=== PATIENT | female | born 1995 | race Caucasian/White ===

== ENCOUNTER 2017-01-21 15:07 | Emergency (ER) | payer BC ==
[~2017-01-21] VITALS: Ht 162.6 cm; Wt 49.8 kg
[~2017-01-21 15:07] MED LIST: MAGN250T3 PO; TOPI100T20 PO
[2017-01-21 15:09] VITALS: TEMP 37.1; Ht 162.6 cm; Wt 49.8 kg
[2017-01-21] MEDS ORDERED: IBUP-1050 PO (15:18)
[2017-01-21] MEDS ORDERED: CHOL1TAB42 PO (15:18)
[2017-01-21] MEDS ORDERED: MULT-513 PO (15:18)
[2017-01-21] MEDS ORDERED: ACETAMINOPHEN 500 MG TAB PO STA (15:22)
[2017-01-21] MEDS ORDERED: TRAMADOL HCL 50 MG TAB PO STA (15:22)
[2017-01-21 16:05] LABS: URINE APPEARANCE CLEAR (CLEAR); URINE BILIRUBIN NEG (NEG); URINE COLOR DK YELLOW; URINE EPITHELIAL CELL AUTO >30 /lpf (0-5); URINE NITRITE NEG (NEG); URINE PH 5.5 (4.5-7.5); URINE SPECIFIC GRAVITY 1.017 (1.000-1.030); UROBILINOGEN NEG (NEG); ZZUR CULT IF INDIC CLEAN CATCH YES
--- NOTE | 2017-01-21 16:08 | DIAGNOSTIC IMAGING REPORT ---
LUMBAR SPINE 5 VIEWS HISTORY: Pain low back pain COMPARISON: None. FINDINGS: Slight wedge deformity superior endplate L4 considered old No subluxation. Mild degenerative disc change throughout. This is most prominent at L3-L4 IMPRESSION: Mild degenerative disc change. No acute bony abnormality. Slight wedge deformity superior endplate L4 considered old Electronically signed by: Chente Bey M.D. 01/21/2017 4:07 PM Dictated Date/Time: 01/21/2017 4:05 PM
[2017-01-21 16:16] LABS: MANUAL MICROSCOPIC REQUIRED? NO; REVIEW REQ? YES
[2017-01-21 16:31] LABS: BENZODIAZEPINE, URINE POS (NEG); COCAINE,URINE NEG (NEG); PHENCYCLIDINE, URINE NEG (NEG)
[2017-01-21] MEDS ORDERED: CEFTRIAXONE SOD 350MG/ML 1 GM VIAL IM ONE (17:45)
[2017-01-21 18:19] VITALS: BP 96/55; PULSE 78; O2SAT 99
--- NOTE | 2017-01-22 18:41 | EMERGENCY ROOM VISIT NOTE ---
History First contact with patient: 15:12 Chief Complaint: BACK PAIN Stated Complaint: SEVERE LOWER BACK PAIN History of Present Illness The patient is a 21 year old female who presents to the Emergency Room with complaints of low back pain for the past 2-3 days. The patient is a nurse's aide and does not recall distinct injury or trauma to explain her symptoms. She is with mild nausea but no vomiting. The patient does not have radiation of her pain. No fevers or chills. The patient considers herself usually healthy and denies chance of . No vaginal drainage or discharge. She does not have a history of chronic back pain. The patient rates her discomfort a 9/10 and does not improve with rest or position. Review of Systems More than 10 systems were reviewed and otherwise negative with the exception of history of present illness. Past Medical/Surgical History No chronic medical disease Family History No pertinent family history Social History Smoking Status: Never Smoker Housing Status: lives with family Occupation Status: employed Current/Historical Medications Scheduled Cholecalciferol (Vitamin D), 5,000 UNITS PO DAILY Magnesium (Magnesium 250 mg), 250 MG PO DAILY Multivitamins/Minerals (Mvi With Minerals), 1 TAB PO DAILY Topiramate (Topamax), 100 MG PO BID Scheduled PRN Ibuprofen (Advil), 400 MG PO Q4 PRN for Pain Allergies Coded Allergies: No Known Allergies (Unverified , 11/03/16) Physical Exam Vital Signs Date Time Temp Pulse Resp B/P Pulse Ox O2 Delivery O2 Flow Rate FiO2 01/21/17 18:19 78 20 96/55 99 01/21/17 17:55 90 16 113/65 98 01/21/17 15:09 37.1 100 18 103/63 100 Room Air Pain Rating (0-10): 5.0 Physical Exam VITALS: Vitals are noted on the nurse's note and reviewed by myself. Vital signs stable. GENERAL: Well-developed, well-nourished, white female, who is in no acute distress and resting comfortably. Patient is cooperative with the examination. HEAD: Normocephalic atraumatic. HEART: Regular rate and rhythm without murmurs gallops or rubs. LUNGS: Clear to auscultation bilaterally without wheezes, rales or rhonchi. No retractions or accessory muscle use. ABDOMEN: Positive normal bowel sounds x 4. Soft, nontender, without masses or organomegaly. No guarding or rebound tenderness. MUSCULOSKELETAL: No muscle atrophy, erythema, or edema noted. Full range of motion without joint tenderness in all extremities. No distinct spinal tenderness appreciated throughout. No saddle paresthesias. Normal straight leg raise. There is left-sided CVA tenderness. NEURO: Patient was alert and oriented to person place and time. CN II through XII grossly intact. Medical Decision & Procedures ER Provider Diagnostic Interpretation: LUMBAR SPINE 5 VIEWS HISTORY: Pain low back pain COMPARISON: None. FINDINGS: Slight wedge deformity superior endplate L4 considered old No subluxation. Mild degenerative disc change throughout. This is most prominent at L3-L4 IMPRESSION: Mild degenerative disc change. No acute bony abnormality. Slight wedge deformity superior endplate L4 considered old Laboratory Results Test 01/21/17 15:44 Urine Color DK YELLOW Urine Appearance CLEAR (CLEAR) Urine pH 5.5 (4.5-7.5) Urine Specific [place] 1.017 (1.000-1.030) Urine Protein NEG (NEG) Urine Glucose (UA) NEG (NEG) Urine Ketones 2+ (NEG) Urine Occult Blood 1+ (NEG) Urine Nitrite NEG (NEG) Urine Bilirubin NEG (NEG) Urine Urobilinogen NEG (NEG) Urine Leukocyte Esterase SMALL (NEG) Urine WBC (Auto) 10-30 /hpf (0-5) Urine RBC (Auto) 0-4 /hpf (0-4) Urine Hyaline Casts (Auto) 10-30 /lpf (0-5) Urine Epithelial Cells (Auto) >30 /lpf (0-5) Urine Bacteria (Auto) NEG (NEG) Urine Renal Epithelial Cells /lpf (0-5) Urine Test NEG (NEG) Urine Opiates Screen NEG (NEG) Urine Methadone, Qualitative NEG (NEG) Urine Barbiturates NEG (NEG) Urine Phencyclidine (PCP) Level NEG (NEG) Ur Amphetamine/Methamphetamine NEG (NEG) MDMA (Ecstasy) Screen NEG (NEG) Urine Benzodiazepines Screen POS (NEG) Urine Cocaine Metabolite NEG (NEG) Urine Marijuana (THC) NEG (NEG) Medications Administered Medications (Trade) Dose Ordered Sig/Yamini Route Start Time Stop Time Status Last Admin Dose Admin Acetaminophen (Tylenol Tab) 1,000 mg NOW STAT PO 01/21/17 15:22 01/21/17 15:24 DC 01/21/17 15:41 1,000 MG Tramadol HCl (Ultram Tab) 50 mg NOW STAT PO 01/21/17 15:22 01/21/17 15:24 DC 01/21/17 15:41 50 MG Ceftriaxone Sodium (Rocephin Im) 1,000 mg NOW ONCE IM 01/21/17 17:45 01/21/17 17:47 DC 01/21/17 18:11 1,000 MG ED Course Physical exam and history were performed. Nursing notes and EMR were reviewed. Patient appears to have low back pain for the past several days. On exam she does have left CVA tenderness. Her pain is not otherwise reproducible on palpation of the spine itself. She is without neurologic deficit. The patient today is accompanied by family, who report that the patient was seen at [facility] yesterday for this complaint. The patient did not originally offer this history to me. The patient states that [facility] "did nothing for me ", and this is why she now presents to this facility. The patient states that they did not do x-rays yesterday, and x-ray was performed. The patient was able to provide a urine sample here, which was sent to the lab. The patient was otherwise medicated as above. I was able to review the records from [facility]. Evidently the patient had blood work performed that did show an elevated white blood cell count. The patient was found to have symptoms consistent with pyelonephritis, and she was given Rocephin. The patient was given prescription antibiotics, but she has not picked these up, and she does not believe that she has a kidney infection. The patient's primary concern is for pain control. The patient urine is as above and was reviewed. It is suggestive of a UTI, and combined with her left CVA tenderness I do suspect that she does have a pyelonephritis. A lumbar spine x-ray series was performed here and does not show acute findings. Of note, the patient does have benzodiazepines in her system, despite not being provided these at [facility] or having these as a normal prescription for her. Overall the patient does appear stable for discharge home. She does not appear toxic, and I did offer oral versus IM medicine here as she did not start her prescription from [facility]. The patient elected for IM treatment, and she was given Rocephin again. The patient needs to follow with her PCP for further care and management. She was otherwise invited back to the ER with any new, worsening, or concerning symptoms. The chart was completed utilizing [employer] Speech Voice Recognition Software. Grammatical errors, random word insertions, pronoun errors, and incomplete sentences are an occasional consequence of this system due to software limitations, ambient noise, and hardware issues. Any formal questions or concerns about the content, text, or information contained within the body of this dictation should be directly addressed to the provider for clarification. . Medical Decision Differential diagnosis: Etiologies such as musculoskeletal, disc herniation, fracture, aortic disease, metastatic disease, cord compression, discitis, infection, renal colic, gastrointestinal, acute exacerbation of chronic back pain, sciatica, cauda equina, as well as others were entertained. Impression Primary Impression: Pyelonephritis Departure Information Dispostion Home / Self-Care Condition GOOD Forms HOME CARE DOCUMENTATION FORM, Work Instructions, IMPORTANT VISIT INFORMATION Patient Instructions [facility] Additional Instructions You were seen and evaluated today on an emergency basis only. This is not a substitute for, or an effort to provide, complete comprehensive medical care. It is not possible to recognize and treat all injuries or illnesses in a single emergency department visit. For this reason it is recommended that you followup with your primary care physician's office on Monday for ongoing care and evaluation. Call first thing in the morning and let them know you were seen in the ER to help make her appointment. Begin your medication as previously prescribed at [facility]. Drink plenty of fluids and remain well hydrated. For baseline pain relief you may alternate ibuprofen and acetaminophen every 4 hours for pain control. Take 600 mg ibuprofen (Advil) and then 4 hours later take 1000 mg acetaminophen (Tylenol). Do not take more than 3000 mg acetaminophen in a single day. You are welcome to return to the emergency department anytime with new, worsening, or concerning symptoms.
[2017-01-25 11:48] LABS: HYDROXYETHYLFLURAZEPAM CONF NEGATIVE NG/ML (CUTOFF=50); HYDROXYMIDAZOLAM NEGATIVE NG/ML (CUTOFF=50); HYDROXYTRIAZOLAM CONF NEGATIVE NG/ML (CUTOFF=50); TEMAZEPAM CONF 587 NG/ML (CUTOFF=50)
== END 2017-01-21 18:21 | disposition home or self-care (01) ==
LOC: C.EDB 15:08 → C.EDD 18:21
DX: N12 Tubulo-interstitial nephritis, not specified as acute or chronic (principal)

== ENCOUNTER → 2018-06-19 | Outpatient (CLI) | payer OTHER ==
[~2018-06-19] MED LIST changes: +CHOL1TAB42 PO; +IBUP-1050 PO; +MULT-513 PO
== END | disposition home or self-care (01) ==
LOC: C.LAB1850 14:15
PROVIDERS: ATTEND Obstetrics & Gynecology
DX: Z34.02 Encounter for supervision of normal first pregnancy, second trimester (principal)

== ENCOUNTER 2020-01-21 07:38 | Inpatient (IN) ==
[2020-01-21] MEDS ORDERED: LACTATED RINGER'S 1,000 ML IV PRN (08:09)
[2020-01-21] MEDS ORDERED: PENICILLIN G POTASSIUM 3 MU in DEXTROSE 5% 100 ML IV PRN (08:09)
[2020-01-21] MEDS ORDERED: OXYTOCIN 30 UNITS/500 ML BAG IV PRN ×2 (08:09→09:53)
[2020-01-21] MEDS ORDERED: PENICILLIN G POTASSIUM 6 MU in DEXTROSE 5% 250 ML IV ONE (08:15)
--- NOTE | 2020-01-21 08:16 | Labor Progress Brief Note ---
Date of Service January 21, 2020 Subjective 24yo arrives from home with c/o +ROM for clear fluid, +FM, +ctx and no VB. Patient was very late presentation to care and has had only one visit. Noted to be on topamax during . Assessment & Plan (1) Carrier of group B Streptococcus: PCN start now. (2) Late care affecting : Reviewed NOB labs, all appear normal, GBS is noted positive, pt aware of limitations of care beginning in late third trimester. (3) Normal labor and delivery: Admit, epidural prn, exp mgmt. Physical Exam Physical Exam: 8100/-1, grossly ruptured for clear fluid. FHT cat 1. [place] rare ctx / poorly traced. Results & Data Vital Signs (Past 12 Hours) Vital Signs Pulse BP 01/21/20 08:00 86 127/66 Coding Level of Care Code None Diagnoses Carrier of group B Streptococcus Z22.330 Late care affecting O09.30 Normal labor and delivery O80
[2020-01-21] MEDS ORDERED: ePHEDrine sulfate 50 MG/ML AMP ONE (08:37)
[2020-01-21] MEDS ORDERED: BUPIVACAINE 0.25% 30 ML VIAL ONE (08:37)
[2020-01-21] MEDS ORDERED: fentaNYL citrate 100 MCG/2 ML VIAL ONE (08:38)
[2020-01-21] MEDS ORDERED: fentaNYL 2MCG/ML ROPIV 1.25MG/ML 100 ML BAG EPI ONE (08:38)
[2020-01-21] MEDS ORDERED: fentaNYL 2MCG/ML ROPIV 1.25MG/ML 100 ML BAG EPI PRN (08:40)
[2020-01-21] MEDS ORDERED: ONDANSETRON INJ 2 MG/ML 2 ML VIAL IV PRN (08:40)
[2020-01-21] MEDS ORDERED: NALOXONE HCL 1 MG in SODIUM CHLORIDE 0.9% 1000ML 1,000 ML IV PRN (08:40)
[2020-01-21] MEDS ORDERED: ePHEDrine sulfate 50 MG/ML AMP IV PRN (08:40)
[2020-01-21] MEDS ORDERED: NALOXONE HCL 0.4 MG/1 ML VIAL/CARP IV PRN (08:40)
[2020-01-21] MEDS ORDERED: DiphenhydrAMINE HCL 50 MG/ML VIAL IV PRN (08:40)
[2020-01-21] MEDS ORDERED: NALBUPHINE HCL INJ 10 MG/ML AMP IV PRN (08:40)
[2020-01-21 08:47] LABS: Hematocrit (blood only) 29.5 % (37-47); Hemoglobin 9.3 g/dL (12.0-16.0); Mean Corpuscular Hemoglobin 24.7 pg (25-34); Mean Corpuscular Volume 78.5 fL (80-100); Mean Platelet Volume 9.9 fL (7.4-10.4); Platelet Count 260 K/uL (130-400); RDW Coefficient of Variation 14.6 % (11.5-14.5); RDW Standard Deviation 41.8 fL (36.4-46.3); Red Blood Count 3.76 M/uL (4.2-5.4); White Blood Count 9.75 K/uL (4.8-10.8)
[2020-01-21 08:53] LABS: Mean Corpuscular Hgb Conc 31.5 g/dL (32-36)
--- NOTE | 2020-01-21 09:42 | Delivery Summary ---
Vaginal Delivery Summary Date of Service January 21, 2020 The patient dilated to complete and pushed to deliver a viable female infant Apgars 8 and 9 via over intact perineum. Mouth and nose bulb suctioned at perineum. Shoulders and body delivered with ease. was vigorous and crying at . Cord clamped at 30 seconds of life and to maternal abdomen where the cord was then doubly clamped and cut. Placenta delivered spontaneously and intact, three-vessel cord. Hemostasis achieved with dilute pitocin and uterine massage. Cervix and sulci intact. EBL 300 cc. Mother and baby stable recovery. [facility] Vaginal Delivery Charge Vaginal Delivery Codes: 75118 global code for the antepartum, delivery, and post-
[2020-01-21] MEDS ORDERED: OXYTOCIN 20 UNITS in LACTATED RINGER'S 1,000 ML IV SCH (09:53)
[2020-01-21] MEDS ORDERED: BENZOCAINE 20% AER SPR 82.5 GM CAN EXT PRN (09:53)
[2020-01-21] MEDS ORDERED: ACETAMINOPHEN 325 MG TAB PO PRN (09:53)
[2020-01-21] MEDS ORDERED: HYDROCORTISONE ACETATE 25 MG SUPP PR PRN (09:53)
[2020-01-21] MEDS ORDERED: DIPHTHERIA/TETANUS/PERTUSSIS 0.5 ML SYR/VIAL IM ONE (09:53)
[2020-01-21] MEDS ORDERED: IBUPROFEN 600 MG TAB PO PRN (09:53)
[2020-01-21] MEDS ORDERED: OXYCODONE/ACETAMINOPHEN 5mg/325mg TAB PO PRN (09:53)
[2020-01-21] MEDS ORDERED: SUPERCREAM 0.870% 15 GM JAR EXT PRN (09:53)
[2020-01-21] MEDS ORDERED: [UNRECOGNIZED DRUG - OTHER] SCH (16:00)
[2020-01-21] MEDS: MAGNESIUM OXIDE 400 MG TAB PO SCH (20:36)
[2020-01-21] MEDS: TOPIRAMATE 100 MG TAB PO SCH (20:36)
[2020-01-21] MEDS: DOCUSATE SODIUM 100 MG CAP PO SCH (20:36)
--- NOTE | 2020-01-22 06:08 | Obstetrical Progress Note ---
Date of Service <Ros Kauffman DO - Last Filed: 01/22/20 06:39> January 22, 2020 Assessment & Plan <Ros Kauffman DO - Last Filed: 01/22/20 06:39> (1) Encounter for care and examination after delivery: 24yo F PPD#1 following at 37.1 weeks. - will continue routine care. - following d/c will have 6 week f/u with Dr. Yeager. Subjective <Ros Kauffman - Last Filed: 01/22/20 06:39> 24 yo female ; PPD # 1 following vaginal delivery at 37.1weeks; doing well this AM; no abdominal cramping/pain; voiding well, tolerating snacks overnight, able to ambulate some within the room. Bottle feeding which she reports is going well. Does not report breast tenderness. Review of Systems Constitutional: denies fever, chills, sweats, headache Respiratory: denies SOB, difficulty breathing Cardiac: denies CP, chest palpitations, chest pressure Breast: denies breast pain : denies dysuria Physical Exam <Ros Kauffman DO - Last Filed: 01/22/20 06:39> General: patient is alert and oriented, in NAD Cardiac: +S1/S2, no murmurs rubs or gallops Respiratory: lungs CTA b/l, anteriorly and posteriorly, no wheezes rales or rhonchi, no increased work of breathing, symmetric chest rise, no respiratory distress Abdomen: soft, NT, +bowel sounds Uterus: uterine fundus firm, palpable below the level of the umbilicus Lower Extremities: no LE edema or swelling, no deep calf pain, Ashley's sign negative b/l Results & Data <Ros Kauffman DO - Last Filed: 01/22/20 06:39> Vital Signs (Past 12 Hours) Vital Signs Temp Pulse Resp BP Pulse Ox 01/22/20 03:25 36.6 C 71 18 120/67 01/21/20 23:15 36.5 C 66 18 110/70 01/21/20 19:35 36.5 C 74 18 111/70 99 Laboratory Results Laboratory Results - last 24 hr 01/21/20 08:27 WBC 9.75 RBC 3.76 L Hgb 9.3 L Hct 29.5 L MCV 78.5 L MCH 24.7 L MCHC 31.5 L RDW Std Deviation 41.8 RDW Coeff of [place] 14.6 H Plt Count 260 MPV 9.9 Medications Administered Current Medications Acetaminophen (Tylenol) 650 mg PO Q6H PRN PRN Reason: Pain/MUNOZ/Fever Stop: 02/20/20 09:52 Last Admin: 01/21/20 14:11 Dose: 650 mg Documented by: Benzocaine (Dermoplast Pain Relieving [place]) 1 appln EXT PRN PRN PRN Reason: Perineal Discomfort Stop: 02/20/20 09:52 Cocaine HCl (Supercream 0.870%) 1 gm EXT BID PRN PRN Reason: Hemorrhoidal Inflammation Stop: 02/04/20 09:52 Docusate Sodium (Colace) 100 mg PO DAILY@08,21 [facility] Stop: 02/20/20 20:59 Last Admin: 01/21/20 20:36 Dose: 100 mg Documented by: Hydrocortisone (Anusol Hc) 25 mg [place] BID PRN PRN Reason: Hemorrhoidal Inflammation Stop: 02/20/20 09:52 Oxytocin 20 units/ Lactated (Ringer's) 1,002 mls @ 125 mls/hr IV .Q8H1M [facility] Stop: 02/20/20 09:52 Last Admin: 01/21/20 11:27 Dose: 125 mls/hr Documented by: Oxytocin (Pitocin) 30 units in 500 mls @ 333.333 mls/hr IV .Q1H30M PRN; Protocol PRN Reason: Bleeding Control Stop: 02/20/20 09:52 Ibuprofen (Motrin) 600 mg PO Q4H PRN PRN Reason: Pain/MUNOZ/Cramping/Fever Stop: 02/20/20 09:52 Magnesium Oxide (Mag-Ox) 400 mg PO BID [facility] Stop: 02/20/20 20:59 Last Admin: 01/21/20 20:36 Dose: 400 mg Documented by: Miscellaneous (Order Awaiting Action) 1 ea N/A QS [facility] Stop: 02/20/20 15:59 Oxycodone/Acetaminophen (Percocet 5mg/325mg) 1 tab PO Q4H PRN PRN Reason: Pain not relieved by... Stop: 02/04/20 09:52 Topiramate (Topamax) 100 mg PO BID [facility] Stop: 02/20/20 20:59 Last Admin: 01/21/20 20:36 Dose: 100 mg Documented by: <Constantin Almeida Jr, MD, FACOG - Last Filed: 01/22/20 07:00> Co-Signing Physician Notes Resident Physician Supervision Note: I was present with Dr. Robertson during the history and exam. I discussed the case with the resident and agree with the findings and plan as documented in the note. Any exceptions or clarifications are listed here: Routine care, doing well Documented By: Constantin Almeida Jr, MD, FACOG Resident Activity Tracking <Ros Kauffman DO - Last Filed: 01/22/20 06:39> Resident Involvement: Resident Care Provided Care Provided: OB Delivery
[2020-01-22] MEDS: DOCUSATE SODIUM 100 MG CAP PO SCH ×2 (08:48→20:49)
[2020-01-22] MEDS: TOPIRAMATE 100 MG TAB PO SCH ×2 (08:48→20:49)
[2020-01-22] MEDS: MAGNESIUM OXIDE 400 MG TAB PO SCH ×2 (08:48→20:49)
--- NOTE | 2020-01-23 07:00 | Obstetrical Progress Note ---
Date of Service <Ros Kauffman - Last Filed: 01/23/20 07:00> January 23, 2020 Assessment & Plan <Ros Kauffman - Last Filed: 01/23/20 07:00> (1) Encounter for care and examination after delivery: 24yo F PPD#1 following at 37.1 weeks. - for discharge this AM. - following d/c will have 6 week f/u with Dr. Yeager. - went over discharge instructions and answered all patient questions. Subjective <Ros KauffmanDO - Last Filed: 01/23/20 07:00> 24 yo female ; PPD # 2 following vaginal delivery at 37.1weeks; doing well this AM; no abdominal cramping/pain; voiding well, tolerating snacks overnight, able to ambulate some within the room. Bottle feeding which she reports is going well. Does not report breast tenderness. Review of Systems Constitutional: denies fever, chills, sweats, headache Respiratory: denies SOB, difficulty breathing Cardiac: denies CP, chest palpitations, chest pressure Breast: denies breast pain : denies dysuria Physical Exam <Ros Hookalivia - Last Filed: 01/23/20 07:00> General: patient is alert and oriented, in NAD Cardiac: +S1/S2, no murmurs rubs or gallops Respiratory: lungs CTA b/l, anteriorly and posteriorly, no wheezes rales or rhonchi, no increased work of breathing, symmetric chest rise, no respiratory distress Abdomen: soft, NT, +bowel sounds Uterus: uterine fundus firm, palpable below the level of the umbilicus Lower Extremities: no LE edema or swelling, no deep calf pain, Ashley's sign negative b/l Results & Data <Ros HookDO alivia - Last Filed: 01/23/20 07:00> Vital Signs (Past 12 Hours) Vital Signs Temp Pulse Resp BP 01/22/20 23:00 36.8 C 81 18 109/70 Medications Administered Current Medications Acetaminophen (Tylenol) 650 mg PO Q6H PRN PRN Reason: Pain/MUNOZ/Fever Stop: 02/20/20 09:52 Last Admin: 01/21/20 14:11 Dose: 650 mg Documented by: Benzocaine (Dermoplast Pain Relieving [place]) 1 appln EXT PRN PRN PRN Reason: Perineal Discomfort Stop: 02/20/20 09:52 Cocaine HCl (Supercream 0.870%) 1 gm EXT BID PRN PRN Reason: Hemorrhoidal Inflammation Stop: 02/04/20 09:52 Docusate Sodium (Colace) 100 mg PO DAILY@08,21 [facility] Stop: 02/20/20 20:59 Last Admin: 01/22/20 20:49 Dose: 100 mg Documented by: Hydrocortisone (Anusol Hc) 25 mg NE BID PRN PRN Reason: Hemorrhoidal Inflammation Stop: 02/20/20 09:52 Oxytocin 20 units/ Lactated (Ringer's) 1,002 mls @ 125 mls/hr IV .Q8H1M [facility] Stop: 02/20/20 09:52 Last Admin: 01/21/20 11:27 Dose: 125 mls/hr Documented by: Oxytocin (Pitocin) 30 units in 500 mls @ 333.333 mls/hr IV .Q1H30M PRN; Protocol PRN Reason: Bleeding Control Stop: 02/20/20 09:52 Ibuprofen (Motrin) 600 mg PO Q4H PRN PRN Reason: Pain/MUNOZ/Cramping/Fever Stop: 02/20/20 09:52 Linaclotide (Linzess) 288 mcg PO QAM [facility] Stop: 02/22/20 08:59 Magnesium Oxide (Mag-Ox) 400 mg PO BID [facility] Stop: 02/20/20 20:59 Last Admin: 01/22/20 20:49 Dose: 400 mg Documented by: Oxycodone/Acetaminophen (Percocet 5mg/325mg) 1 tab PO Q4H PRN PRN Reason: Pain not relieved by... Stop: 02/04/20 09:52 Topiramate (Topamax) 100 mg PO BID [facility] Stop: 02/20/20 20:59 Last Admin: 01/22/20 20:49 Dose: 100 mg Documented by: <Sukhdev Jansen MD - Last Filed: 01/23/20 07:38> Co-Signing Physician Notes Patient doing well and agree with above findings and plan. Stable for discharge today. Resident Activity Tracking <Ros Kauffman DO - Last Filed: 01/23/20 07:00> Resident Involvement: Resident Care Provided Care Provided: OB Delivery
[2020-01-23] MEDS: MAGNESIUM OXIDE 400 MG TAB PO SCH ×2 (08:27→20:04)
[2020-01-23] MEDS: DOCUSATE SODIUM 100 MG CAP PO SCH ×2 (08:27→20:04)
[2020-01-23] MEDS: TOPIRAMATE 100 MG TAB PO SCH ×2 (08:27→20:04)
[2020-01-23] MEDS ORDERED: LINACLOTIDE 72 MCG CAPSULE PO SCH (09:00)
== END 2020-01-23 20:55 | disposition home or self-care (01) | DRG 807 ==
LOC: OPB 07:38 → 4S1 07:40 → 4S2 12:25